=== PATIENT | male | born 1955 | race Caucasian/White ===

== ENCOUNTER 2019-10-28 09:57 | Observation (INO) | payer OTHER ==
[~2019-10-28] VITALS: Ht 185.4 cm; Wt 79.4 kg
[~2019-10-28 09:57] MED LIST: ASPI81EC PO; ATOR80 PO; Aspirin EC81 MG PO; BUPR75 PO; CARV25 PO; CEPH500; CLIN300 PO; CLON.2 PO; CLOP75 PO; CYCL10 PO; FENO145 PO; GEMF600 PO; GLIP10 PO; GLUCOPHAGE1000 MG PO; ISOMON30 PO; LISI5 PO; METO10 PO; NITR.4SL SL; Omeprazole20 M1 PO; PANT40 PO; PARO20 PO; PRAV20 PO; PRIM50 PO; RANI150 PO; TRIA80TC TOP; ZESTRIL40 M1 PO
[2019-10-28 10:16] LABS: Chloride (POC) 102 mmol/L (98-108); Creatinine (POC) 0.9 mg/dL (0.8-1.3); Glucose (ISTAT POC) 280 mg/dL (70-99); Hemoglobin (POC) 16.7 g/dL (13.5-17.5); Potassium (POC) 4.6 mmol/L (3.5-5.5); Sodium (POC) 134 mmol/L (135-148); Total CO2 (POC) 19 mmol/L (21-32)
[2019-10-28 10:36] LABS: BASOPHILS ABSOLUTE AUTO 0.04 K/mm3 (0.00-0.23); BASOPHILS PERCENT AUTO 0 % (0-2); EOSINOPHILS ABSOLUTE AUTO 0.34 K/mm3 (0.00-0.68); EOSINOPHILS PERCENT AUTO 2 % (0-6); Hematocrit 48.1 % (37.0-53.0); Hemoglobin 15.9 g/dL (13.5-17.5); IMMATURE GRAN ABSOLUTE AUTO 0.06 K/mm3 (0.00-0.10); IMMATURE GRAN PERCENT AUTO 0 % (0-1); LYMPHOCYTES ABSOLUTE AUTO 0.45 K/mm3 (0.84-5.20); LYMPHOCYTES PERCENT AUTO 3 % (21-46); MONOCYTES PERCENT AUTO 4 % (4-13); Mean Corpuscular HGB 28.3 pg (26.0-34.0); Mean Corpuscular HGB Conc 33.1 g/dL (31.5-36.5); Mean Corpuscular Volume 86 fL (80-100); NEUTROPHILS ABSOLUTE AUTO 12.41 K/mm3 (1.96-9.15); NEUTROPHILS PERCENT AUTO 89 % (41-73); RDW Coefficient Variation 14.7 % (11.7-14.2); RDW Standard Deviation 46.2 fL (35.1-46.3); Red Blood Cell Count 5.62 M/mm3 (4.30-5.90)
[2019-10-28 10:38] LABS: Alanine Aminotransfer (ALT/SGP 18 U/L (12-78); Albumin, Blood 3.2 g/dL (3.4-5.0); Albumin/Globulin Ratio 0.9 (0.8-1.8); Alk Phos 67 U/L (50-136); Anion Gap 9 mmol/L (6-16); Aspartate Aminotrans (AST/SGOT 14 U/L (12-37); Bilirubin, Total 0.4 mg/dL (0.1-1.0); Blood Urea Nitrogen 23 mg/dL (8-24); Bun/Creatinine Ratio 22.8 (12.0-20.0); CO2, Blood 20 mmol/L (21-32); Calcium, Blood 8.6 mg/dL (8.5-10.1); Chloride, Blood 106 mmol/L (98-108); Creatinine, Blood 1.01 mg/dL (0.60-1.20); Globulin, Blood 3.4 g/dL (2.2-4.0); Glomerular Filtration Rate >60 (60-); Glucose, Blood 276 mg/dL (70-99); Potassium, Blood 4.7 mmol/L (3.5-5.5); Sodium, Blood 135 mmol/L (136-145); Total Protein, Blood 6.6 g/dL (6.4-8.2); Troponin I <0.015 ng/mL (0.000-0.040)
[2019-10-28 10:39] LABS: Mean Platelet Volume 9.9 fL (9.1-12.4)
[2019-10-28 11:08] LABS: Platelet Count 246 K/mm3 (150-400)
[2019-10-28] MEDS ORDERED: Vitamin D2000 UNIT PO (15:36)
[2019-10-28 15:45] LABS: CPK Creatine Kinase 88 U/L (39-308); Creatine Kinase MB <1.0 ng/mL (0.0-3.6); Creatine Kinase MB Index Unable to Calculate (0.0-4.0)
--- NOTE | 2019-10-28 16:44 | NUR ---
Echocardiogram completed.
--- NOTE | 2019-10-28 18:41 | NUR ---
ASSUMED CARE: PT ARRIVED TO THE UNIT VIA STRETCHER FROM [facility]. PT IS ALERT AND ORIENTED, HX OF CVA LEFT SIDED WEAKNESS, OCCASIONAL TWITCHING/TREMORS. PT IS HERE FOR PERICARDIAL EFFUSION, VSS AFEBRILE, HRR NSR WITH ST ELEVATION PT DENIES CEHST PAIN/DISCOMFORT, BP SYSTOLIC 130'S, SATS ABOVE 95% ON ROOMAIR. NS RUNNING AT 75MLS/HR, PT CURRENTLY NPO FOR POSSIBLE PROCEDURE IN AM. C/O ACID REFLUX TUMS GIVEN AND WAS EFFECTIVE. PT CURRENTLY RESTING IN BED CALL LIGHTS WITHIN REACH ABLE TO MAKE NEEDS KNOWN, WILL REPORT TO ONCOMING SHIFT.
[2019-10-28 21:23] LABS: CPK Creatine Kinase 244 U/L (39-308); Creatine Kinase MB 1.1 ng/mL (0.0-3.6); Creatine Kinase MB Index 0.5 (0.0-4.0); Troponin I <0.015 ng/mL (0.000-0.040)
[2019-10-29 04:33] LABS: Alanine Aminotransfer (ALT/SGP 13 U/L (12-78); Albumin, Blood 3.1 g/dL (3.4-5.0); Albumin/Globulin Ratio 1.1 (0.8-1.8); Alk Phos 55 U/L (50-136); Anion Gap 7 mmol/L (6-16); Aspartate Aminotrans (AST/SGOT 12 U/L (12-37); Bilirubin, Total 0.4 mg/dL (0.1-1.0); Blood Urea Nitrogen 26 mg/dL (8-24); Bun/Creatinine Ratio 27.2 (12.0-20.0); CO2, Blood 22 mmol/L (21-32); Calcium, Blood 8.5 mg/dL (8.5-10.1); Chloride, Blood 109 mmol/L (98-108); Creatinine, Blood 0.96 mg/dL (0.60-1.20); Globulin, Blood 2.9 g/dL (2.2-4.0); Glomerular Filtration Rate >60 (60-); Glucose, Blood 175 mg/dL (70-99); Magnesium, Blood 1.9 mg/dL (1.6-2.4); Potassium, Blood 4.1 mmol/L (3.5-5.5); Sodium, Blood 138 mmol/L (136-145); Troponin I <0.015 ng/mL (0.000-0.040)
[2019-10-29 05:12] LABS: BASOPHILS ABSOLUTE AUTO 0.02 K/mm3 (0.00-0.23); BASOPHILS PERCENT AUTO 0 % (0-2); EOSINOPHILS ABSOLUTE AUTO 0.76 K/mm3 (0.00-0.68); EOSINOPHILS PERCENT AUTO 10 % (0-6); Hematocrit 42.1 % (37.0-53.0); IMMATURE GRAN ABSOLUTE AUTO 0.02 K/mm3 (0.00-0.10); IMMATURE GRAN PERCENT AUTO 0 % (0-1); LYMPHOCYTES ABSOLUTE AUTO 0.89 K/mm3 (0.84-5.20); LYMPHOCYTES PERCENT AUTO 12 % (21-46); MONOCYTES ABSOLUTE AUTO 0.71 K/mm3 (0.16-1.47); MONOCYTES PERCENT AUTO 9 % (4-13); Mean Corpuscular HGB 28.4 pg (26.0-34.0); Mean Corpuscular HGB Conc 33.3 g/dL (31.5-36.5); Mean Corpuscular Volume 85 fL (80-100); Mean Platelet Volume 9.8 fL (9.1-12.4); NEUTROPHILS ABSOLUTE AUTO 5.34 K/mm3 (1.96-9.15); NEUTROPHILS PERCENT AUTO 69 % (41-73); Platelet Count 165 K/mm3 (150-400); RDW Coefficient Variation 15.1 % (11.7-14.2); RDW Standard Deviation 46.8 fL (35.1-46.3); Red Blood Cell Count 4.93 M/mm3 (4.30-5.90); White Blood Cell Count 7.74 K/mm3 (4.00-11.30)
--- NOTE | 2019-10-29 07:20 | NUR ---
patient admitted due to weakness + nausea and vomiting.This patient was found to have a small pericardial effusion on arrival. No acute events overnight. Patient did well, no complaints of chest pain, chest pressure, shortness of breath.
--- NOTE | 2019-10-29 17:51 | NUR ---
SHIFT SUMMARY PT A&Ox3; CALM AND COOPERATIVE WITH CARE. CHRONIC LEFT SIDE WEAKNESS WITH TREMORS AND SLIGHT CONTRACTURES. PT RESTING IN BED DURING SHIFT. ASSISTING WITH REPOSITIONING. PT REPORTS PAIN TO BACK AND LEGS, MEDICATEDx1 WITH FENTANYL WITH POSITIVE RESULTS. PT DENIES SOB, NAUSEA AND DIZZINESS T/O SHIFT. VSS. NO OTHER ACUTE CHANGES NOTED DURING SHIFT. WILL CONTINUE TO MONITOR UNITL REPORT GIVEN TO ONCOMING RN.
[2019-10-30 03:41] LABS: BASOPHILS ABSOLUTE AUTO 0.01 K/mm3 (0.00-0.23); BASOPHILS PERCENT AUTO 0 % (0-2); EOSINOPHILS ABSOLUTE AUTO 0.64 K/mm3 (0.00-0.68); EOSINOPHILS PERCENT AUTO 10 % (0-6); Hematocrit 39.9 % (37.0-53.0); Hemoglobin 12.9 g/dL (13.5-17.5); IMMATURE GRAN ABSOLUTE AUTO 0.02 K/mm3 (0.00-0.10); IMMATURE GRAN PERCENT AUTO 0 % (0-1); LYMPHOCYTES ABSOLUTE AUTO 0.78 K/mm3 (0.84-5.20); LYMPHOCYTES PERCENT AUTO 12 % (21-46); MONOCYTES PERCENT AUTO 8 % (4-13); Mean Corpuscular HGB 28.2 pg (26.0-34.0); Mean Corpuscular HGB Conc 32.3 g/dL (31.5-36.5); Mean Corpuscular Volume 87 fL (80-100); Mean Platelet Volume 9.8 fL (9.1-12.4); NEUTROPHILS ABSOLUTE AUTO 4.42 K/mm3 (1.96-9.15); NEUTROPHILS PERCENT AUTO 70 % (41-73); Platelet Count 152 K/mm3 (150-400); RDW Coefficient Variation 15.1 % (11.7-14.2); RDW Standard Deviation 48.5 fL (35.1-46.3); Red Blood Cell Count 4.57 M/mm3 (4.30-5.90); White Blood Cell Count 6.37 K/mm3 (4.00-11.30)
[2019-10-30 03:59] LABS: Anion Gap 6 mmol/L (6-16); Blood Urea Nitrogen 20 mg/dL (8-24); Bun/Creatinine Ratio 22.1 (12.0-20.0); CO2, Blood 22 mmol/L (21-32); Calcium, Blood 8.6 mg/dL (8.5-10.1); Chloride, Blood 109 mmol/L (98-108); Creatinine, Blood 0.91 mg/dL (0.60-1.20); Glomerular Filtration Rate >60 (60-); Glucose, Blood 166 mg/dL (70-99); Potassium, Blood 3.9 mmol/L (3.5-5.5); Sodium, Blood 137 mmol/L (136-145)
--- NOTE | 2019-10-30 06:04 | NUR ---
patient admitted due to weakness + nausea and vomiting. This patient was found to have a small pericardial effusion on arrival. No acute events overnight. Patient did well, no complaints of chest pain, chest pressure, shortness of breath.
[2019-10-30] MEDS ORDERED: TUMS500 MG PO (09:01)
[2019-10-30] MEDS ORDERED: ACET325 PO (09:01)
[2019-10-30] MEDS ORDERED: CYCL10 PO (09:02)
[2019-10-30] MEDS ORDERED: HYDR10 PO (09:04)
[2019-10-30] MEDS ORDERED: ONDA4 PO (09:05)
--- NOTE | 2019-10-30 09:14 | NUR ---
TRANSFER NOTED PT A&Ox3; CALM AND COOPERATIVE WITH CARE. CHRONIC LEFT SIDE WEAKNESS; TREMORS NOTED AND SLIGHT CONTRACTURES NOTED. PT RESTING IN BED, ASSIST WITH REPOSITIONING. PT REPORTS PAIN TO RIGHT HIP AND BACL; MEDICATED WITH NORCO WITH POSITIVE RESULTS. PT DENIES SOB, CHEST PAIN/PRESSURE, NAUSEA AND DIZZINESS. PT HAS HAD MULTIPLE EPISODES OF LIQUIDS STOOL THIS AM, PAIN MANANGEMENT AND HTN; NOTIFIED DR SCHRADER NEW ORDERS ENTERED. GI PANEL SENT. ELEVATED BP NOTED; MEDICATED WITH SCHEDULE MEDICATIONS; OTHER VSS. TELEPHONE REPORT GIVEN TO RN ASSUMING CARE OF PT. PT TRANSFERED TO ROOM 304
[2019-10-30 11:59] LABS: Adenovirus F 40/41 Not Detected (NOT DETECT); Astrovirus Not Detected (NOT DETECT); Campylobacter Sp Not Detected (NOT DETECT); Cryptosporidium Not Detected (NOT DETECT); Cyclospora Cayetanensis Not Detected (NOT DETECT); E. Coli O157 Not Detected (NOT DETECT); Entamoeba Histolytica Not Detected (NOT DETECT); Enteroaggregative E. coli-EAEC Not Detected (NOT DETECT); Enteropathogenic E. coli-EPEC Detected (NOT DETECT); Enterotoxigenic E. coli-ETEC Not Detected (NOT DETECT); Giardia Lamblia Not Detected (NOT DETECT); Norovirus GI/GII Not Detected (NOT DETECT); Plesiomonas Shigelloides Not Detected (NOT DETECT); Rotavirus A Not Detected (NOT DETECT); Salmonella Sp Not Detected (NOT DETECT); Sapovirus Not Detected (NOT DETECT); Shiga Toxin-prod E. coli-STEC Not Detected (NOT DETECT); Shigella/Enteroin E. coli-EIEC Not Detected (NOT DETECT); Vibrio Cholerae Not Detected (NOT DETECT); Vibrio Sp Not Detected (NOT DETECT); Yersinia Enterocolitica Not Detected (NOT DETECT)
[2019-10-30] MEDS ORDERED: AZIT500 PO (13:00)
== END 2019-10-30 13:37 | disposition home or self-care (01) ==
LOC: ER 09:57 → PCU 09:58 → MEDS 10-30 09:10
PROVIDERS: Emergency Medicine; ADMIT Family Medicine
DX: I31.3 Pericardial effusion (noninflammatory) (principal); I71.4 Abdominal aortic aneurysm, without rupture; I72.3 Aneurysm of iliac artery; N20.0 Calculus of kidney; N40.0 Benign prostatic hyperplasia without lower urinary tract symptoms; R19.7 Diarrhea, unspecified; E11.51 Type 2 diabetes mellitus with diabetic peripheral angiopathy without gangrene; A49.8 Other bacterial infections of unspecified site; I10 Essential (primary) hypertension; M41.9 Scoliosis, unspecified; E78.5 Hyperlipidemia, unspecified; I69.354 Hemiplegia and hemiparesis following cerebral infarction affecting left non-dominant side; R07.9 Chest pain, unspecified; Z87.891 Personal history of nicotine dependence; Z88.2 Allergy status to sulfonamides; Z79.899 Other long term (current) drug therapy; Z79.82 Long term (current) use of aspirin; Z79.84 Long term (current) use of oral hypoglycemic drugs; J44.9 Chronic obstructive pulmonary disease, unspecified; Z79.02 Long term (current) use of antithrombotics/antiplatelets
CPT/HCPCS: 0097U; 36415; 71046; 74176; 80047; 80048; 80053; 82550; 82553; 82947; 83605; 83735; 83880; 84145; 84484; 85014; 85025; 85651; 86140; 93005; 93010; 93306; 96372; 96374-59; 96375; 96375-59; 96376; 96376-59; 97116; 97162; 97530; 99285-25; A9270-GY; G0378; J0360; J1644; J2405; J3010; J7030; U0002